=== PATIENT | male | born 1960 | race Caucasian/White ===

== ENCOUNTER 2018-03-14 01:23 | Day surgery (SDC) | payer OTHER ==
[~2018-03-14] VITALS: Ht 172.7 cm; Wt 80.3 kg
[~2018-03-14 01:23] MED LIST: ASCO-182 PO; ASPI-757 PO; DOC100 PO; IBUP200C74 PO; LOR5 PO; TAM4 PO
[2018-03-14 07:03] VITALS: BP 138/88
[2018-03-14] MEDS ORDERED: LIDOCAINE/SOD BICARB 8.4% SYR ID ONE (07:10)
[2018-03-14] MEDS ORDERED: NORMOSOL R SOLN(*) 1000 ML BAG 1,000 ML IV PRN (07:10)
[2018-03-14] MEDS ORDERED: LIDOCAINE MPF 1% 5 ML VIAL ONE (07:52)
[2018-03-14] MEDS ORDERED: PROPOFOL EMUL(*) 10MG/ML 20 ML 60 ML ONE (07:52)
[2018-03-14 08:37] VITALS: BP 104/67
[2018-03-14 08:45] VITALS: BP 106/70
--- NOTE | 2018-03-14 08:52 | Short(Outpt) Discharge Summary ---
Discharge Summary Reason for Hosp/Final Diag: (1) History of colon polyps Status: Chronic Hospital Course & Plan: Colonoscopy with polypectomy x2 completed without problems. (2) Family history of colon cancer requiring screening colonoscopy Departure Discharge to: Home, Self Care Discharge Instructions Home Meds Reported Medications Ascorbic Acid (VITAMIN C) 500 Mg Tablet, 500 MG PO DAILY, TAB 03/02/18 Aspirin (ASPIRIN) Unknown Strength Tablet, 40.5 MG PO DAILY, TAB 02/16/18 Diet: Regular Activity: As Tolerated Special Instructions: Your colonoscopy was completed without any problems and your prep was good. I removed 2 polyps from your colon and they were sent to pathology. You also have diverticulosis in your sigmoid colon. This is a benign condition that occurs in 40% of people. 10% of people with diverticulosis get diverticulitis, or an infection of this are of their colon. I recommend that you eat at least 4 servings of vegetables and fruits every day and you can also take a fiber supplement, such as metamucil or citrucel, every day which prevents the diverticulosis from getting worse. I didn't find any explanation for the blood that you saw. Diverticuli can bleed but there was no blood in any of them today. Hemorrhoidal bleeding is the most likely explanation but I can confidently tell you that the blood wasn't from a colorectal cancer. I recommend that your next colonoscopy be in 5 years due to your family history of colorectal cancer and due to your history of colon polyps. My office will call you in the next week or so and let you know what the polyps are. PANCHITO SNOWDEN MD Mar 14, 2018 08:52
[2018-03-14 09:00] VITALS: BP 126/84
[2018-03-14 09:06] VITALS: BP 121/85
[2018-03-14 09:08] VITALS: BP 119/89
== END 2018-03-14 09:30 | disposition home or self-care (01) ==
LOC: OR 01:23
PROVIDERS: ATTEND Surgery
DX: D12.3 Benign neoplasm of transverse colon (principal); D12.5 Benign neoplasm of sigmoid colon; K57.30 Diverticulosis of large intestine without perforation or abscess without bleeding
CPT/HCPCS: 00811; 45385; 88305; J2001; J2704